=== PATIENT | male | born 1980 | race Hispanic/Latino ===

== ENCOUNTER 2024-10-16 15:43 | Emergency (ER) | payer SELFPAY ==
[~2024-10-16] VITALS: Ht 160 cm; Wt 77.1 kg
[2024-10-16 16:50] VITALS: PULSE 87; RESP 16; TEMP 98.1
[2024-10-16] MEDS ORDERED: AMOX TR-K CLV1 EAC2 PO (17:16)
[2024-10-16 17:56] VITALS: BP 145/86; PULSE 86; RESP 16; O2SAT 96
[2024-10-16] MEDS: TETANUS/DIPHTHERIA TOX ADULT 0.5 ML SYR IM ONE (17:56)
== END 2024-10-16 17:58 | disposition home or self-care (01) ==
LOC: ER 17:10
DX: S80.871A Other superficial bite, right lower leg, initial encounter (principal); S50.871A Other superficial bite of right forearm, initial encounter; S30.871A Other superficial bite of abdominal wall, initial encounter; W54.0XXA Bitten by dog, initial encounter; Y92.89 Other specified places as the place of occurrence of the external cause; I10 Essential (primary) hypertension; E11.9 Type 2 diabetes mellitus without complications; E78.5 Hyperlipidemia, unspecified
CPT/HCPCS: 90471; 90714; 99282